=== PATIENT | male | born 1995 | race Caucasian/White ===

== ENCOUNTER 2016-05-31 18:04 | Emergency (ER) | payer MEDICARE | END 2016-05-31 23:20 | disposition home or self-care (01) | LOC: D.ER 18:04 | DX: H66.42 Suppurative otitis media, unspecified, left ear (principal); F17.200 Nicotine dependence, unspecified, uncomplicated ==

== ENCOUNTER 2016-09-23 10:17 | Emergency (ER) | payer MEDICARE | END 2016-09-23 13:10 | disposition home or self-care (01) | LOC: D.ER 10:17 | DX: L20.9 Atopic dermatitis, unspecified (principal); R21 Rash and other nonspecific skin eruption; F17.200 Nicotine dependence, unspecified, uncomplicated ==

== ENCOUNTER 2018-10-03 11:32 | Emergency (ER) | payer MEDICAID ==
[2018-10-03 11:34] VITALS: Wt 96.8 kg
[2018-10-03] MEDS ORDERED: HYDROCODON-ACE1 EA10 PO (12:10)
[2018-10-03 13:14] VITALS: BP 132/76
== END 2018-10-03 13:15 | disposition home or self-care (01) ==
LOC: D.ER 11:32
DX: S92.332A Displaced fracture of third metatarsal bone, left foot, initial encounter for closed fracture (principal); W22.09XA Striking against other stationary object, initial encounter; Y93.89 Activity, other specified; Y92.89 Other specified places as the place of occurrence of the external cause

== ENCOUNTER 2018-10-24 06:58 | Emergency (ER) | payer MEDICAID ==
[~2018-10-24 06:58] MED LIST: HYDROCODON-ACE1 EA10 PO
[2018-10-24 07:02] VITALS: Wt 96.8 kg
[2018-10-24] MEDS ORDERED: PEPCID AC20 MG PO (07:15)
[2018-10-24 07:30] VITALS: BP 148/82
== END 2018-10-24 07:31 | disposition home or self-care (01) ==
LOC: D.ER 06:58
DX: R21 Rash and other nonspecific skin eruption (principal)

== ENCOUNTER 2019-03-17 10:34 | Emergency (ER) | payer MEDICAID ==
[~2019-03-17] VITALS: Ht 190.5 cm; Wt 98.2 kg
[~2019-03-17 10:34] MED LIST changes: +PEPCID AC20 MG PO
[2019-03-17 10:50] VITALS: Ht 190.5 cm; Wt 98.2 kg
[2019-03-17 11:20] LABS: BASOPHILS 0.2 % (0-2); EOSINOPHILS 1.3 % (0-7); HEMATOCRIT 46.8 % (42.0-54.0); HEMOGLOBIN 16.8 g/dL (13.5-17.5); IMMATURE GRANULOCYTES 0.5 % (0-5); MCH 32.5 pg (26.0-34.0); MCHC 35.9 g/dL (31.0-37.0); MCV 90.5 fL (80.0-100.0); MEAN PLATELET VOLUME 9.7 fL (7.4-10.4); MONOCYTES 7.6 % (2-11); NEUTROPHILS 70.4 % (40-80); RBC 5.17 10x6/uL (4.20-6.10); RDW 12.1 % (11.5-14.5); WBC 8.5 10x3/uL (4.8-10.8)
[2019-03-17 11:25] LABS: PLATELET COUNT 235 10x3/uL (130-400)
[2019-03-17 11:36] LABS: ALKALINE PHOSPHATASE 92 U/L (46-116); ALT (SGPT) 29 U/L (10-68); APTT 27.6 SECONDS (22.8-39.4); BILIRUBIN - TOTAL 0.29 mg/dL (0.2-1.3); CALC OSMOLALITY 283 mosm/kg (275-300); CALCIUM 8.9 mg/dL (8.5-10.1); CARBON DIOXIDE 28.3 mmol/L (21.0-32.0); CHLORIDE - SERUM 107 mmol/L (98-107); CREATININE - SERUM 0.8 mg/dL (0.6-1.3); GLUCOSE 103 mg/dL (74-106); INR 0.94 (0.85-1.17); PROTEIN - SERUM 6.9 g/dL (6.4-8.2); PROTIME 12.5 SECONDS (11.6-15.0); SODIUM 143 mmol/L (136-145); UREA NITROGEN 11 mg/dL (7-18); eGFR NON AFRICAN AMERICAN > 90 mL/min (90-120)
[2019-03-17] MEDS ORDERED: CYCLOBENZAPRINE10 MG PO (12:44)
[2019-03-17] MEDS ORDERED: NAPROSYN500 MG PO (12:44)
[2019-03-17] MEDS ORDERED: ACETAMINOPHEN500 M1 PO (12:44)
[2019-03-17 12:54] VITALS: BP 123/83
== END 2019-03-17 13:02 | disposition home or self-care (01) ==
LOC: D.ER 10:34
PROVIDERS: Family Medicine
DX: R07.89 Other chest pain (principal); W19.XXXA Unspecified fall, initial encounter; Y93.9 Activity, unspecified; Y92.9 Unspecified place or not applicable; Y99.0 Civilian activity done for income or pay

== ENCOUNTER 2020-05-25 20:32 | Emergency (ER) | payer BC ==
[2020-01-06 19:10] VITALS: BMI 25.6
[~2020-05-25 20:32] MED LIST changes: +ACETAMINOPHEN500 M1 PO; +CYCLOBENZAPRINE10 MG PO; +NAPROSYN500 MG PO; +STERAPRED DS 1010 MG PO; +ZPAK PO
== END 2020-05-25 20:38 | disposition left against medical advice (07) ==
LOC: D.ER 20:32
DX: T78.40XA Allergy, unspecified, initial encounter (principal)